=== PATIENT | female | born 1985 | race Hispanic/Latino ===

== ENCOUNTER 2020-03-31 19:44 | Emergency (ER) | payer SELFPAY ==
[2020-03-31 19:48] VITALS: BP 144/48; PULSE 90; RESP 16; TEMP 36.5; O2SAT 100
--- NOTE | 2020-03-31 20:19 | ED.GENADULT ---
HPI - General Adult General Chief complaint: Skin/Abscess/Foreign Body Stated complaint: left breast burning Time Seen by Provider: 03/31/20 20:05 Source: patient and family Mode of arrival: ambulatory Limitations: language barrier History of Present Illness HPI narrative: Patient is a 34-year-old female who presents with left breast pain involving the nipple noting burning of the nipple denies similar occurrence injury or trauma has not been seen for this complaint patient presents in no distress does not have a director family notes that she has had a normal mammogram in the recent past patient denies other complaints or illnesses and on arrival is resting comfortably in the room in no distress Related Data Allergies Allergy/AdvReac Type Severity Reaction Status Date / Time Penicillins Allergy Unknown Verified 03/31/20 20:06 Review of Systems Review of Systems: All systems reviewed & are unremarkable except as noted in HPI and below PMFSH Surgical History Surgical History (Updated 03/31/20 @ 20:20 by Jose Mac PA-C) H/O section Social History Social History (Updated 03/31/20 @ 20:20 by Jose Mac PA-C) Smoking status: Never smoker Exam Narrative: Exam Narrative: GENERAL: Well-appearing, well-nourished, and in no acute distress. HEAD: Normocephalic, atraumatic. EYES: PERRLA and EOMI. ENT: Nares clear, no rhinorrhea or epistaxis. Mucous membranes moist. CHEST: Clear to auscultation. No respiratory distress. No wheezes rales or rhonchi HEART: Regular rate and rhythm. No murmur heard. BREAST: Normal bilateral breast no drainage no erythema no masses EXTREMITIES: Normal range of motion. No edema. SKIN: Warm, dry, no rash. NEURO: No focal deficits. Alert and oriented x3. Cranial nerves II through XII grossly intact PSYCH: Normal mood and affect. Course Course Emergency Course: Patient in the room in no distress aware of his findings treatment plan diagnosis will be referred to [facility] provided with reasons to return Vital Signs Vital signs: Vital Signs Temperature 97.7 F 03/31/20 19:48 Pulse Rate 90 03/31/20 19:48 Respiratory Rate 16 03/31/20 19:48 Blood Pressure 144/48 H 03/31/20 19:48 Pulse Oximetry 100 03/31/20 19:48 Temperature 97.7 F 03/31/20 19:48 Pulse Rate 90 03/31/20 19:48 Respiratory Rate 16 03/31/20 19:48 Blood Pressure 144/48 H 03/31/20 19:48 Pulse Oximetry 100 03/31/20 19:48 Medical Decision Making MDM Narrative Medical decision making narrative: Patient in the room in no distress referred to gynecology felt appropriate for outpatient reevaluation agreeing to follow-up as directed Vital Signs Vital Signs: Vital Signs Temperature 97.7 F 03/31/20 19:48 Pulse Rate 90 03/31/20 19:48 Respiratory Rate 16 03/31/20 19:48 Blood Pressure 144/48 H 03/31/20 19:48 Pulse Oximetry 100 03/31/20 19:48 Temperature 97.7 F 03/31/20 19:48 Pulse Rate 90 03/31/20 19:48 Respiratory Rate 16 03/31/20 19:48 Blood Pressure 144/48 H 03/31/20 19:48 Pulse Oximetry 100 03/31/20 19:48 Discharge Plan Discharge Clinical Impression: Breast pain, left Patient Disposition: Home, Self-Care Condition: Stable Instructions: Antibiotic Form, Mastitis (ED) Additional Instructions: Follow-up with gynecology by phone tomorrow to set up for reevaluation in the next 5 to 7 days return if symptoms worsen or concerns, any increase in redness swelling pain or fever over 100.5 Cool compresses for symptom relief Patient Language: [place] Prescriptions: New ibuprofen [IBU] 600 mg tablet 600 mg PO QID PRN (Reason: fever or pain) Qty: 7 RF: 0 Follow-up/Referrals: Michael Merida DO [Physician] - PHYSICIAN,[facility] [Primary Care Provider] -
[2020-03-31 20:46] VITALS: BP 138/68; PULSE 82; RESP 20; O2SAT 99
== END 2020-03-31 20:52 | disposition home or self-care (01) ==
PROVIDERS: Emergency Provider Emergency Medicine
DX: N64.4 Mastodynia (principal)
CPT/HCPCS: 99283